=== PATIENT | male | born 1995 | race Caucasian/White ===

== ENCOUNTER 2017-12-28 03:46 | Emergency (ER) | payer OTHER ==
[~2017-12-28] VITALS: Ht 172.7 cm; Wt 99.0 kg
[~2017-12-28 03:46] MED LIST: CITA40TA12 PO
[2017-12-28 03:51] VITALS: TEMP 36.7; Ht 172.7 cm; Wt 99.0 kg
[2017-12-28 04:33] LABS: CALCIUM 8.9 mg/dl (8.5-10.1); CREATININE 1.22 mg/dl (0.60-1.40); POTASSIUM 3.9 mmol/L (3.5-5.1)
[2017-12-28 05:08] VITALS: BP 141/84; PULSE 99; O2SAT 100
--- NOTE | 2017-12-28 05:11 | EMERGENCY ROOM VISIT NOTE ---
ED Visit Note First contact with patient: 03:47 CHIEF COMPLAINT: Alcohol overdose HISTORY OF PRESENT ILLNESS: This 22 year old male patient presents to the emergency department via ambulance for evaluation of an alcohol overdose. The patient is brought in by ambulance. He was taking a taxi home from the [facility] and when he got to around [facility], he passed out in the Taxi. Upon EMS arrival, he was uncooperative and belligerent with police. He was unable to find any sober friends to get him home. Upon arrival to the ED, he has no complaints, but continues to be somewhat uncooperative. He did contact his parents who are on their way to come get him. He has no complaints while here in the ED, denies CP, dyspnea, trauma, pain, headache, or paresthesias. He admits to drinking a significant amount of alcohol this evening. REVIEW OF SYSTEMS: Once the patient was able to reliably answer questions a review of systems was performed with positives and pertinent negatives listed in the history of present illness. All other systems were reviewed and are negative. ALLERGIES: None MEDICATIONS: Celexa PMH: None SOCIAL HISTORY: The patient is a [employer] student. He lives locally with his roommate. He denies drug use. He admits to using a vape and socially drinking. PHYSICAL EXAM: VITALS: Vitals are noted on the nurse's note and reviewed by myself. Vital signs stable. GENERAL: This is a 22-year-old obese white male, in no acute distress, nondiaphoretic, well-developed well-nourished. The patient is visibly intoxicated. SKIN: The skin was without obvious lacerations, abrasions, or rashes. There is no tenting of the skin. Capillary reflex less than 2 seconds. HEENT: Normocephalic, atraumatic. PERRLA. EOMI. Conjunctiva with mild injection without icterus. Tympanic membranes without erythema or effusion bilaterally no hemotympanum. External auditory canals are clear. Nares patent bilaterally. No epistaxis. Oropharynx without erythema or exudate. Uvula midline. Oral mucosal moist. No lymphadenopathy. Neck is supple without cervical spine tenderness. HEART: Regular rate and rhythm without murmurs gallops or rubs. Peripheral pulses 2+. LUNGS: Clear to auscultation bilaterally without wheezes, rales or rhonchi. ABDOMEN: Positive bowel sounds x 4. Normal tympanic percussion. Soft, nontender, without masses or organomegaly. MUSCULOSKELETAL: Gross motor function of the upper and lower extremities intact. The patient has a staggering gait. NEUROLOGIC: The patient is visibly intoxicated. Once they were more sober they were alert and oriented to person place and time. EMERGENCY DEPARTMENT COURSE: I examined the patient. The patient is irritable and agitated. On initial examination, the patient is on the phone with his mother. His mother states she is on her way to come get the patient from the hospital. The patient was finally able to contact his roommate, Mynor Enamorado, who does admit to being sober. He states he is willing to take responsibility for monitoring the patient at home. He feels comfortable with this plan of care. Throughout the course of his stay, the patient was alert and oriented to person, place, time, and event. His vital signs have been stable. His alcohol level was 297 mg/dL , so his roommate was encouraged to monitor the patient for at least the next 8 hours. The patient was given alcohol intoxication handouts. The patient was discharged home in stable condition with Mynor. In the evaluation and treatment of this patient, the following differential diagnoses were considered: Hypoglycemia, Barbiturate Toxicity, Benzodiazepine Toxicity, Depression and Suicidality, Diabetic Ketoacidosis, Encephalitis, Ethylene Glycol Toxicity, Meningitis, Metabolic Acidosis, Opioid Toxicity, CVA, TIA, Intracranial Abnormality, Acute Psychosis, Amongst Others. DIAGNOSIS: Acute alcohol overdose Current/Historical Medications Scheduled Citalopram Hydrobromide (Celexa), 40 MG PO DAILY Allergies Coded Allergies: No Known Allergies (Unverified , 12/28/17) Vital Signs Date Time Temp Pulse Resp B/P (MAP) Pulse Ox O2 Delivery O2 Flow Rate FiO2 12/28/17 05:08 99 18 141/84 100 Room Air 12/28/17 03:55 110 12/28/17 03:51 36.7 113 20 150/103 96 Room Air Laboratory Results 12/28/17 03:53 Test 12/28/17 03:53 Anion Gap 6.0 mmol/L (3-11) Est Creatinine Clear Calc Drug Dose 108.3 ml/min Estimated GFR () 96.9 Estimated GFR (Non- 83.6 BUN/Creatinine Ratio 8.3 (10-20) Calcium Level 8.9 mg/dl (8.5-10.1) Ethyl Alcohol mg/dL 297.0 mg/dl (0-3) Departure Information Impression Primary Impression: Alcohol overdose Dispostion Home / Self-Care Condition GOOD Referrals No Doctor, Assigned (PCP) Forms HOME CARE DOCUMENTATION FORM, IMPORTANT VISIT INFORMATION Patient Instructions ED Overdose Alcohol, My [facility] Additional Instructions You were seen in the emergency department today for acute alcohol overdose. Your friend, Mynor Enamorado is willing to take responsibility for you at home. You are to be monitored for at least the next 8 hours. You are to sleep in a facedown position. No more drinking today. Please drink responsibly in the future. Ibuprofen(Motrin, Advil) may be used for fever or pain. Use 600mg every six hours as needed. Take with food. Avoid using more than 2400mg in a 24 hour period. Do not use 2400mg per day for more than three consecutive days without physician direction. Prolonged inappropriate use can lead to stomach upset or ulcers. (AND/OR) Acetaminophen(Tylenol) may be used for fever or pain. Use 1000mg every six hours as needed. Avoid using more than 3000mg in a 24 hour period. Return to the ED for seizures, passing out, fever, intractable vomiting or pain , or other concerning symptoms. Problem Qualifiers Primary Impression: Alcohol overdose Encounter type: initial encounter Injury intent: undetermined intent Qualified Codes: T51.94XA - Toxic effect of unspecified alcohol, undetermined, initial encounter
== END 2017-12-28 05:13 | disposition home or self-care (01) ==
LOC: EDBD 03:46 → C.EDA 03:47
DX: F10.929 Alcohol use, unspecified with intoxication, unspecified (principal); Y90.8 Blood alcohol level of 240 mg/100 ml or more